=== PATIENT | female | born 1940 | race Caucasian/White ===

== ENCOUNTER 2025-05-20 09:52 | Outpatient (CLI) | payer MEDICARE, BC | END 2025-05-20 09:53 | disposition home or self-care (01) | LOC: SCSBT 09:52 | PROVIDERS: ATTEND Family Medicine | DX: Z13.820 Encounter for screening for osteoporosis (principal); Z78.0 Asymptomatic menopausal state; M81.0 Age-related osteoporosis without current pathological fracture | CPT/HCPCS: 77080 ==